=== PATIENT | female | born 1975 | race Caucasian/White ===

== ENCOUNTER 2020-01-18 09:40 | Outpatient (CLI) | payer BC, SELFPAY ==
--- NOTE | ~2020-01-18 | CT_ITS ---
EXAMINATION: CT sinus wo con DATE: 01/18/2020 10:14 INDICATION: Facial pain. TECHNIQUE: Computed tomography (CT) of the paranasal sinuses was performed without intravenous contra st. The dose-length product was 175.96 mGy-cm. Iterative reconstruction technique was employed. COMPARISON: None FINDINGS: There is no significant mucosal thickening or air-fluid level. No mucoperiosteal reaction. Ostiomeatal units are patent. Mastoids are pneumatized. IMPRESSION: 1. No significant paranasal sinus disease. Reviewed, dictated and finalized at location A.
== END 2020-01-18 09:41 | disposition home or self-care (01) ==
LOC: ANHIMG 09:46
DX: R51 Headache (principal)
CPT/HCPCS: 70486

== ENCOUNTER 2020-02-08 09:48 | Outpatient (CLI) | payer BC, SELFPAY ==
[2020-02-08 10:17] LABS: Basophils Absolute Auto 0.02 K/mm3 (0.00-0.10); Basophils Percent Auto 0.4 % (0.0-1.0); Eosinophils Absolute Auto 0.05 K/mm3 (0.02-0.50); Hematocrit 41.3 % (35.0-49.0); Hemoglobin 13.3 g/dL (12.0-15.0); Immature Granulocyte Absolute 0.02 K/mm3 (0.00-0.00); Immature Granulocyte Percent A 0.4 % (0.0-0.0); Lymphocytes Absolute Auto 1.63 K/mm3 (1.10-4.50); Lymphocytes Percent Auto 31.2 % (18.0-42.0); Mean Corpuscular HGB Conc 32.2 g/dL (32.0-36.0); Mean Corpuscular Hemoglobin 30.7 pg (27.0-31.0); Mean Corpuscular Volume 95.4 fL (78.0-102.0); Mean Platelet Volume 10.4 fl (9.2-11.8); Monocytes Absolute Auto 0.35 K/mm3 (0.10-0.90); Monocytes Percent Auto 6.7 % (2.0-11.0); Neutrophils Absolute Auto 3.2 K/mm3 (1.7-7.2); Neutrophils Percent Auto 60.3 % (50.0-70.0); Platelet Count Result 212 K/mm3 (150-420); Red Blood Count 4.33 M/mm3 (4.20-5.40); Red Cell Distribution Width 11.9 % (11.6-14.4); White Blood Count 5.2 K/mm3 (4.8-10.8)
[2020-02-08 11:19] LABS: Alanine Aminotransferase 35 U/L (14-59); Albumin Level 3.8 g/dL (3.4-5.0); Alkaline Phosphatase 69 U/L (46-116); Anion Gap 7 mmol/L (8-16); Aspartate Amino Transferase 22 U/L (15-37); Bilirubin,Total 0.4 mg/dL (0.00-1.00); Blood Urea Nitrogen 10 mg/dL (7-18); Calcium 9.2 mg/dL (8.5-10.1); Carbon Dioxide 28 mmol/L (21-32); Chloride 105 mmol/L (98-108); Cholesterol 146 mg/dL (0-200); Estimated Glomerular Filt Rate > 60; Glucose 80 mg/dL (70-99); HDL Direct 38 mg/dL (40-60); LDL Cholesterol Calculated 98 mg/dL (<130); Osmolality Calculated 288 mOsm/kg (285-295); Potassium 4.5 mmol/L (3.5-5.1); Sodium 140 mmol/L (136-145); Total Protein 6.8 g/dL (6.4-8.2); Triglycerides 50 mg/dL (0-150)
== END 2020-02-08 09:49 | disposition home or self-care (01) ==
LOC: CHSLAB 09:50
PROVIDERS: Visit Provider Internal Medicine Cardiovascular Disease
DX: E66.3 Overweight (principal); R06.00 Dyspnea, unspecified
CPT/HCPCS: 36415; 80053; 80061; 85025

== ENCOUNTER 2020-03-06 07:42 | Outpatient (CLI) | payer BC, SELFPAY ==
--- NOTE | ~2020-03-06 | MR_ITS ---
EXAMINATION: MR pituitary wo/w con DATE: 03/06/2020 09:20 INDICATION: Pituitary tumor. Pituitary disorder. Headache. TECHNIQUE: Magnetic resonance imaging (MRI) of the brain and brainstem was performed without and with 13 mL MultiHance intravenous contrast. Whole-brain sequences included sagittal T1-weighted FSE, axia l diffusion-weighted FS EPI, axial T2*-weighted GRE, axial T2-weighted FLAIR Propeller, and axial T2- weighted Propeller. Small mgewj-rc-cszo sequences included sagittal and coronal T1-weighted FSE cente red at the pituitary. Postcontrast sequences included small lewxn-xq-eaiq coronal T1-weighted FSE in a time course and sagittal T1-weighted FSE and whole-brain axial T1-weighted FSE. Apparent diffusion coefficient (ADC) maps were created. COMPARISON: Brain MRI 02/05/2019, 01/17/2017 FINDINGS: There are scattered areas of nonspecific increased T2-weighted signal intensity in the cere bral white matter. The pituitary is normal in size with height of 4 mm and concave superior margin. T he infundibulum is at the midline. There is no intracranial hemorrhage, acute infarction, or abnormal intracranial mass lesion. The ventricles are normal in size. The paranasal sinuses are clear. The or bits are normal. The mastoid air cells are normal. IMPRESSION: 1. Normal pituitary. 2. Stable mild nonspecific cerebral white matter disease. The differential diagnosis includes prematu re chronic small vessel ischemic disease (especially if the patient has cardiovascular risk factors), demyelinating disease such as multiple sclerosis, drug abuse, vasculitis, or reactive astrocytosis ( gliosis) secondary to nonspecific etiology. Reviewed, dictated and finalized at location A. TER ELECTRONIC IMPRESSION: 1. Normal pituitary. 2. Stable mild nonspecific cerebral white matter disease. The differential diag nosis includes premature chronic small vessel ischemic disease (especially if t he patient has cardiovascular risk factors), demyelinating disease such as mult iple sclerosis, drug abuse, vasculitis, or reactive astrocytosis (gliosis) seco ndary to nonspecific etiology.
[2020-03-06 08:31] LABS: Estimated Glomerular Filt Rate > 60
== END 2020-03-06 07:43 | disposition home or self-care (01) ==
DX: E23.7 Disorder of pituitary gland, unspecified (principal)
CPT/HCPCS: 70553; A9577

== ENCOUNTER 2020-03-13 08:46 | Outpatient (CLI) | payer BC, SELFPAY ==
--- NOTE | 2020-03-13 08:54 | EST_ITS ---
Patient Info Name: Ashley Becerril Age: 44 years : 1975 Gender: Female Ht: 63 in Wt: 145 lbs BSA: 1.72 m2 Exam Date: 03/13/2020 9:11 AM Exam Location: [facility] Stress Patient Status: Outpatient Admit Date: 03/13/2020 Staff Ordering Physician: Brian Saha DO Attending Provider: Brian Saha DO Exercise Technologist: Anneliese Snyder RDCS Exam Type: CA stress test treadmill Study Info Indications R06.00 - Dyspnea, unspecified A treadmill exercise stress test was performed. Summary 1. Normal sinus rhythm - normal ECG. 2. No abnormal ST/T wave changes with exercise. 3. Clinically and electrocardiographically negative exercise stress test at 99% of age predicted maximal heart rate. Protocol: [place] Stress ECG Details Stage: REST Duration (min): 1 min : 42 sec Speed (mph): 0.0 Grade (%): 0 HR (bpm): 66 SBP (mmHg): 104 DBP (mmHg): 66 METS: --- Stage: REST Duration (min): 1 min : 49 sec Speed (mph): 0.0 Grade (%): 0 HR (bpm): 68 SBP (mmHg): 104 DBP (mmHg): 66 METS: --- Stage: REST Duration (min): 10 min : 10 sec Speed (mph): 0.0 Grade (%): 0 HR (bpm): 79 SBP (mmHg): 104 DBP (mmHg): 66 METS: --- Stage: STAGE 1 Duration (min): 1 min : 0 sec Speed (mph): 1.7 Grade (%): 10 HR (bpm): 104 SBP (mmHg): 104 DBP (mmHg): 66 METS: --- Stage: STAGE 1 Duration (min): 2 min : 0 sec Speed (mph): 1.7 Grade (%): 10 HR (bpm): 104 SBP (mmHg): 104 DBP (mmHg): 66 METS: --- Stage: STAGE 1 Duration (min): 3 min : 0 sec Speed (mph): 1.7 Grade (%): 10 HR (bpm): 104 SBP (mmHg): 108 DBP (mmHg): 48 METS: --- Stage: STAGE 2 Duration (min): 1 min : 0 sec Speed (mph): 2.5 Grade (%): 12 HR (bpm): 113 SBP (mmHg): 108 DBP (mmHg): 48 METS: --- Stage: STAGE 2 Duration (min): 2 min : 0 sec Speed (mph): 2.5 Grade (%): 12 HR (bpm): 119 SBP (mmHg): 125 DBP (mmHg): 55 METS: --- Stage: STAGE 2 Duration (min): 3 min : 0 sec Speed (mph): 2.5 Grade (%): 12 HR (bpm): 120 SBP (mmHg): 125 DBP (mmHg): 55 METS: --- Stage: STAGE 3 Duration (min): 1 min : 0 sec Speed (mph): 3.4 Grade (%): 14 HR (bpm): 134 SBP (mmHg): 114 DBP (mmHg): 54 METS: --- Stage: STAGE 3 Duration (min): 2 min : 0 sec Speed (mph): 3.4 Grade (%): 14 HR (bpm): 142 SBP (mmHg): 114 DBP (mmHg): 54 METS: --- Stage: STAGE 3 Duration (min): 3 min : 0 sec Speed (mph): 3.4 Grade (%): 14 HR (bpm): 142 SBP (mmHg): 114 DBP (mmHg): 54 METS: --- Stage: STAGE 4 Duration (min): 1 min : 0 sec Speed (mph): 4.2 Grade (%): 16 HR (bpm): 166 SBP (mmHg): 114 DBP (mmHg): 54 METS: --- Stage: STAGE 4 Duration (min):
--- NOTE | 2020-03-21 14:16 | WPDPFTINT ---
PFT Interpretation PFT Interpretation: This PFT met all criteria for ATS standards and reproducibility FEV/FVC post bronchodilator 72% FEV1 117% FVC 125% TLC 121% RV 96% RV/TLC 27% DLCO 101% when adjusted for alveolar volume but not adjusted for hemoglobin Flow volume loops were normal Impression: No significant obstruction or restriction and unfortunately no bronchodilator challenge was ordered which limits the interpretation of this study. Borderline hyperinflation is present. If Asthma/Reactive Airway Disease is suspected I would recommend ordering a Methacholine Challenge Study. Clinical correlation is advised.
== END 2020-03-13 08:47 | disposition home or self-care (01) ==
PROVIDERS: Visit Provider Internal Medicine Cardiovascular Disease
DX: R06.00 Dyspnea, unspecified (principal)
CPT/HCPCS: 93017; 94375; 94726; 94729

== ENCOUNTER 2020-05-16 08:49 | Outpatient (CLI) | payer BC, SELFPAY ==
--- NOTE | ~2020-05-16 | DEXA_ITS ---
Bone Density Report Name: Ashley Becerril Age: 44 Sex: Female Ethnicity: White Date of : 1975 Indication: prior fracture; Referring Provider: JOHN MCCOY Study: Bone densitometry was performed. Exam Date: May 16, 2020 Accession number: [id number] Bone Density: Region BMD T-score Z-score Classification AP Spine (L1-L4) 0.956 -0.8 -0.3 Normal Femoral Neck (Left) 0.721 -1.2 -0.6 Osteopenia Total Hip (Left) 0.874 -0.6 -0.2 Normal Total Hip Bilateral Avg 0.838 -0.9 -0.5 Normal Femoral Neck (Right) 0.664 -1.7 -1.1 Osteopenia Total Hip (Right) 0.801 -1.2 -0.8 Osteopenia World Health Organization criteria for BMD impression classify patients as: Normal (T-score at or above -1.0), Osteopenia (T-score between -1.0 and -2.5), or Osteoporosis (T-score at or below -2.5). 10-year Fracture Risk: FRAX not reported because: Premenopausal woman Clinical Information Provided by Patient: Has had a low trauma fracture Has used the following medications: HRT (i.e. estrogen/hormone therapy), Vitamin D, Calcium Patient maximum height was 63 Drinks caffeinated beverages Onset of menses at age 12 Premenopausal Number of children 1 Impression: The patient's bone mass is within expected range for age, gender and ethnicity. The patient has risk factors, including: previous fracture. Discussion: BONE DENSITY IS WITHIN EXPECTED LIMITS FOR AGE, SEX AND RACE. Bone density is within expected limits for age, sex and race at all sites measured. The patient should follow a healthful lifestyle (good nutrition with adequate calcium and vitamin D, and appropriate weight-bearing exercise). Follow-Up: Consider repeating this study in 2 to 3 years to reassess this patient's status, or sooner if there is some new clinical indication. Reported by: UMESH on 05/18/2020 12:58:00 PM. Reviewed, dictated and finalized at location AJosué ROBBINS
== END 2020-05-16 08:50 | disposition home or self-care (01) ==
PROVIDERS: PCP Internal Medicine; Visit Provider Nurse Practitioner
DX: Z87.898 Personal history of other specified conditions (principal); M85.852 Other specified disorders of bone density and structure, left thigh; M85.851 Other specified disorders of bone density and structure, right thigh
CPT/HCPCS: 77080

== ENCOUNTER 2020-06-13 09:42 | Outpatient (CLI) | payer BC, SELFPAY ==
--- NOTE | ~2020-06-13 | MM_ITS ---
EXAMINATION: MM screening [facility] BI w jerod HISTORY: Screening mammogram TECHNIQUE: Craniocaudal and mediolateral oblique 3-D tomosynthesis images were obtained and synthetic 2-D images were generated. CAD analysis was submitted and interpreted. COMPARISON: 07/10/2017, 11/13/2014, 02/02/2010 BREAST PARENCHYMAL COMPOSITION: The breasts are heterogeneously dense, which may obscure small masses . FINDINGS: There is no evidence of suspicious mass, calcification, or architectural distortion to sugg est malignancy in either breast. There has been no suspicious interval change. IMPRESSION: 1. No mammographic evidence of malignancy. 2. Recommend routine screening mammography in one year. BI-RADS Category 1: Negative Reviewed, dictated and finalized at location A. ATANT DIVER QUALIFIED
== END 2020-06-13 09:43 | disposition home or self-care (01) ==
PROVIDERS: PCP Internal Medicine; Visit Provider Obstetrics & Gynecology
DX: Z12.31 Encounter for screening mammogram for malignant neoplasm of breast (principal)
CPT/HCPCS: 77063; 77067

== ENCOUNTER 2020-07-08 17:31 | Outpatient (CLI) | payer BC, SELFPAY ==
--- NOTE | ~2020-07-08 | XR_ITS ---
XR chest 2V DATE: 07/08/2020 17:53 INDICATION: Wheezing for 6 months. Chest pain with certain arm movement. TECHNIQUE: PA and lateral views COMPARISON: 09/08/2018 PA and lateral chest FINDINGS: Normal heart size. No hilar or mediastinal enlargement. No pulmonary infiltrate or consolid ation, pleural effusion or pulmonary vascular congestion or pneumothorax. Mild thoracolumbar dextroscoliosis. IMPRESSION: No active cardiopulmonary disease Reviewed, dictated and finalized at location A.
== END 2020-07-08 17:32 | disposition home or self-care (01) ==
PROVIDERS: PCP Internal Medicine; Visit Provider Internal Medicine Pulmonary Disease
DX: R06.2 Wheezing (principal)
CPT/HCPCS: 71046

== ENCOUNTER 2020-09-17 09:47 | Outpatient (CLI) | payer BC, SELFPAY ==
--- NOTE | 2020-09-17 11:30 | NEURO_ITS ---
Impression: # Complains of pain and discomfort in upper extremities. # No Carpal Tunnel Syndrome. # No ulnar neuropathy. # Normal needle/EMG exam. # Clinical correlation recommended. Nerve Conduction Studies Anti Sensory Summary Table Stim Site NR Peak (ms) P-T Amp (?V) Site1 Site2 Delta-P (ms) Dist (cm) Kike (m/s) Left Median Anti Sensory (2-3nd Digit) Wrist 2.6 73.4 Wrist 2-3nd Digit 2.6 14.0 54 Wrist 2.5 77.3 Wrist 2-3nd Digit 2.6 14.0 54 Right Median Anti Sensory (2-3nd Digit) Wrist 2.6 34.9 Wrist 2-3nd Digit 2.6 14.0 54 Wrist 2.2 64.2 Wrist 2-3nd Digit 2.6 14.0 54 Left Radial Anti Sensory (Base 1st Digit) Wrist 1.6 58.0 Wrist Base 1st Digit 1.6 0.0 Right Radial Anti Sensory (Base 1st Digit) Wrist 2.1 27.5 Wrist Base 1st Digit 2.1 0.0 Left Ulnar Anti Sensory (5th Digit) Wrist 2.0 84.7 Wrist 5th Digit 2.0 14.0 70 Right Ulnar Anti Sensory (5th Digit) Wrist 2.2 70.8 Wrist 5th Digit 2.2 14.0 64 Motor Summary Table Stim Site NR Onset (ms) O-P Amp (mV) Site1 Site2 Delta-0 (ms) Dist (cm) Kike (m/s) Left Median Motor (Abd Poll Brev) Wrist 2.5 9.8 Elbow Wrist 4.1 26.0 63 Elbow 6.6 9.9 Right Median Motor (Abd Poll Brev) Wrist 2.6 8.0 Elbow Wrist 4.0 26.0 65 Elbow 6.6 5.1 Left Ulnar Motor (Abd Dig Minimi) Wrist 2.2 5.3 A Elbow Wrist 4.6 28.0 61 A Elbow 6.8 4.8 Right Ulnar Motor (Abd Dig Minimi) Wrist 2.9 7.6 A Elbow Wrist 4.5 28.0 62 A Elbow 7.4 6.3 F Wave Studies NR F-Lat (ms) L-R F-Lat (ms) Left Median (Mrkrs) (Abd Poll Brev) 25.00 1.32 Right Median (Mrkrs) (Abd Poll Brev) 26.32 1.32 Left Ulnar (Mrkrs) (Abd Dig Min) 25.81 0.10 Right Ulnar (Mrkrs) (Abd Dig Min) 25.70 0.10 EMG Side Muscle Nerve Root Ins Act Fibs Amp Dur Recrt Comment Right 1stDorInt Ulnar C8-T1 Nml Nml Nml Nml Nml Right Ext Indicis Radial (Post Int) C7-8 Nml Nml Nml Nml Nml Right Ext Digitorum Radial (Post Int) C7-8 Nml Nml Nml Nml Nml Right BrachioRad Radial C5-6 Nml Nml Nml Nml Nml Right PronatorTeres Median C6-7 Nml Nml Nml Nml Nml Right Abd Poll Brev Median C8-T1 Nml Nml Nml Nml Nml Left 1stDorInt Ulnar C8-T1 Nml Nml Nml Nml Nml Left Ext Indicis Radial (Post Int) C7-8 Nml Nml Nml Nml Nml Left Ext Digitorum Radial (Post Int) C7-8 Nml Nml Nml Nml Nml Left BrachioRad Radial C5-6 Nml Nml Nml Nml Nml Left PronatorTeres Median C6-7 Nml Nml Nml Nml Nml Left Abd Poll Brev Median C8-T1 Nml Nml Nml Nml Nml MTDD
== END 2020-09-17 09:48 | disposition home or self-care (01) ==
PROVIDERS: PCP Internal Medicine; Visit Provider Orthopaedic Surgery
DX: G56.03 Carpal tunnel syndrome, bilateral upper limbs (principal)
CPT/HCPCS: 95886; 95911

== ENCOUNTER 2020-10-03 08:58 | Outpatient (CLI) | payer BC, SELFPAY ==
--- NOTE | ~2020-10-03 | US_ITS ---
EXAMINATION: US thyroid EXAM DATE: 10/03/2020 09:28 INDICATION: E04.1 - Nontoxic single thyroid nodule. TECHNIQUE: Multiple grayscale and Doppler images of the thyroid were obtained (by a technologist who performed the scan) and subsequently reviewed. Individual nodules and recommendations may be reporte d in accordance with TI-RADS system as designated by the 2017 ACR White Paper TI-RADS committee. The re is no prior study for comparison. FINDINGS: Right thyroid lobe measures 4.4 x 1.5 x 1.5 cm, the left measuring 4.2 x 1.3 x 1.6 cm with homogeneou s echogenicity. There is a right thyroid lobe midpole hypervascular nodule measuring 10 x 9 x 9 mm, c ategory TR 4. No other thyroid nodules identified. IMPRESSION: Single right thyroid lobe nodule; current recommendation is follow-up at 1, 2, 3 and 5 ye ars to document stability. Reviewed, dictated and finalized at location A. IMPRESSION: Single right thyroid lobe nodule; current recommendation is follow- up at 1, 2, 3 and 5 years to document stability.
== END 2020-10-03 08:59 | disposition home or self-care (01) ==
LOC: ANHIMG 09:02
PROVIDERS: PCP Internal Medicine; Visit Provider Nurse Practitioner
DX: E04.1 Nontoxic single thyroid nodule (principal)
CPT/HCPCS: 76536

== ENCOUNTER 2020-11-30 11:07 | Outpatient (CLI) | payer BC, SELFPAY ==
[2020-11-30 13:12] LABS: Basophils Absolute Auto 0.01 K/mm3 (0.00-0.10); Basophils Percent Auto 0.2 % (0.0-1.0); Eosinophils Absolute Auto 0.11 K/mm3 (0.02-0.50); Eosinophils Percent Auto 1.9 % (1.0-6.0); Hematocrit 40.9 % (35.0-49.0); Hemoglobin 13.9 g/dL (12.0-15.0); Immature Granulocyte Absolute 0.01 K/mm3 (0.00-0.00); Immature Granulocyte Percent A 0.2 % (0.0-0.0); Lymphocytes Absolute Auto 1.95 K/mm3 (1.10-4.50); Mean Corpuscular Hemoglobin 31.8 pg (27.0-31.0); Mean Corpuscular Volume 93.6 fL (78.0-102.0); Mean Platelet Volume 11.5 fl (9.2-11.8); Monocytes Absolute Auto 0.28 K/mm3 (0.10-0.90); Monocytes Percent Auto 4.9 % (2.0-11.0); Neutrophils Absolute Auto 3.4 K/mm3 (1.7-7.2); Neutrophils Percent Auto 58.8 % (50.0-70.0); Platelet Count Result 204 K/mm3 (150-420); Red Blood Count 4.37 M/mm3 (4.20-5.40); Red Cell Distribution Width 12.3 % (11.6-14.4); White Blood Count 5.7 K/mm3 (4.8-10.8)
[2020-12-02 20:22] LABS: Alpha-1-Antitrypsin, QN 120 mg/dL (83-199)
[2020-12-02 22:47] LABS: Immunoglobulin G, Serum 804 mg/dL (600-1640); Immunoglobulin G1 552 mg/dL (382-929); Immunoglobulin G2 155 mg/dL (241-700); Immunoglobulin G3 66 mg/dL (22-178); Immunoglobulin G4 2.2 mg/dL (4.0-86.0)
[2020-12-03 14:07] LABS: Immunoglobulin E 6 kU/L (<=114)
[2020-12-08 15:48] LABS: Quantiferon TB Plus, 1T NEGATIVE
[2020-12-08 15:49] LABS: NIL 0.05
== END 2020-11-30 11:08 | disposition home or self-care (01) ==
LOC: CHSLAB 11:11
PROVIDERS: PCP Internal Medicine; Visit Provider Nurse Practitioner
DX: R05 Cough (principal)
CPT/HCPCS: 36415; 82103; 82104; 82784; 82785; 82787; 85025; 86003; 86331; 86480; 86606; 86609

== ENCOUNTER 2021-01-26 12:21 | Outpatient (CLI) | payer BC, SELFPAY ==
--- NOTE | ~2021-01-26 | XR_ITS ---
XR chest 2V DATE: 01/26/2021 12:51 INDICATION: Wheezing. Mild exposure. TECHNIQUE: 2 views COMPARISON: 07/08/2020 2 view chest FINDINGS: No pulmonary infiltrate or consolidation, pleural effusion or pulmonary vascular congestion or pneumothorax. Normal heart size. No hilar or mediastinal enlargement. Mild thoracic scoliosis. IMPRESSION: No active cardiopulmonary disease Reviewed, dictated and finalized at location A.
--- NOTE | 2021-02-01 12:32 | WPDMETH ---
Methacholine Procedure Perform Procedure Performed Methacholine Challenge Methacholine Challenge Testing was performed with increasing doses of nebulized methacholine using a 2 minute tidal breathing protocol. Following the administration of nebulized methacholine with progressively increasing concentration and after the fifth dose with a concentration of 25 mg/ml, the measured FEV1 did not change significantly from the baseline value. Impression: Negative methacholine challenge testing.
== END 2021-01-26 12:22 | disposition home or self-care (01) ==
PROVIDERS: PCP Internal Medicine; Referring Provider Obstetrics & Gynecology; Visit Provider Nurse Practitioner
DX: R06.02 Shortness of breath (principal); Z77.120 Contact with and (suspected) exposure to mold (toxic)
CPT/HCPCS: 71046; 94070; J7674

== ENCOUNTER 2021-02-13 12:05 | Outpatient (CLI) | payer BC, SELFPAY ==
[2021-02-13 12:49] LABS: Basophils Absolute Auto 0.02 K/mm3 (0.00-0.10); Basophils Percent Auto 0.3 % (0.0-1.0); Eosinophils Absolute Auto 0.12 K/mm3 (0.02-0.50); Eosinophils Percent Auto 2.1 % (1.0-6.0); Hematocrit 41.7 % (35.0-49.0); Immature Granulocyte Absolute 0.01 K/mm3 (0.00-0.00); Immature Granulocyte Percent A 0.2 % (0.0-0.0); Lymphocytes Absolute Auto 2.09 K/mm3 (1.10-4.50); Mean Corpuscular HGB Conc 33.6 g/dL (32.0-36.0); Mean Corpuscular Hemoglobin 31.5 pg (27.0-31.0); Mean Corpuscular Volume 93.9 fL (78.0-102.0); Mean Platelet Volume 10.1 fl (9.2-11.8); Monocytes Absolute Auto 0.34 K/mm3 (0.10-0.90); Monocytes Percent Auto 5.9 % (2.0-11.0); Neutrophils Absolute Auto 3.2 K/mm3 (1.7-7.2); Neutrophils Percent Auto 55.5 % (50.0-70.0); Platelet Count Result 215 K/mm3 (150-420); Red Blood Count 4.44 M/mm3 (4.20-5.40); Red Cell Distribution Width 11.9 % (11.6-14.4); White Blood Count 5.8 K/mm3 (4.8-10.8)
[2021-02-17 13:30] LABS: Immunoglobulin A 128 mg/dL (47-310); Immunoglobulin G 890 mg/dL (600-1640); Immunoglobulin M 90 mg/dL (50-300)
[2021-02-17 18:26] LABS: Immunoglobulin E 5 kU/L (<=114)
[2021-02-20 18:57] LABS: S. pneumonia Serotype 1 (1) <0.3; S. pneumonia Serotype 12 (12F) 9.1; S. pneumonia Serotype 14 (14) <0.3; S. pneumonia Serotype 17 (17F) <0.3; S. pneumonia Serotype 18C (56) <0.3; S. pneumonia Serotype 19 (19F) 3.3; S. pneumonia Serotype 2 (2) <0.3; S. pneumonia Serotype 22 (22F) <0.3; S. pneumonia Serotype 23 (23F) 0.9; S. pneumonia Serotype 3 (3) 0.3; S. pneumonia Serotype 34 (10A) <0.3; S. pneumonia Serotype 4 (4) <0.3; S. pneumonia Serotype 43 (11A) <0.3; S. pneumonia Serotype 5 (5) <0.3; S. pneumonia Serotype 51 (7F) 0.5; S. pneumonia Serotype 54 (15B) <0.3; S. pneumonia Serotype 57 (19A) <0.3; S. pneumonia Serotype 68 (9V) <0.3; S. pneumonia Serotype 6B (26) <0.3; S. pneumonia Serotype 70 (33F) <0.3; S. pneumonia Serotype 8 (8) <0.3; S. pneumonia Serotype 9 (9N) <0.3
== END 2021-02-13 12:06 | disposition home or self-care (01) ==
LOC: CHSLAB 12:10
PROVIDERS: PCP Internal Medicine
DX: D80.1 Nonfamilial hypogammaglobulinemia (principal)
CPT/HCPCS: 36415; 82784; 82785; 85025; 86317; 86684; 86774

== ENCOUNTER 2021-04-04 16:24 | Emergency (ER) | payer BC, SELFPAY ==
--- NOTE | 2021-04-04 16:47 | ED.HA ---
HPI - Headache General Chief Complaint: Headache Stated Complaint: migraine, sinus pressure, short of breath Source: patient and RN notes reviewed Mode of arrival: ambulatory Limitations: no limitations History of Present Illness HPI Narrative: patient states she does not have a headache now but when she lays back supine position she tends to get headaches feels like her sinuses are draining and drainages going down the back of her throat. She has seen ENT and an academic support director. She has not seen a neurologist for headaches. She is concerned about later on tonight having another headache and waking up tomorrow may be with a headache. She takes a 1000 mg of Tylenol sometimes daily and 400 mg of ibuprofen. She asked about using migraine medicine such as Imitrex for her current headaches. MD elicited complaint: headache and migraine Onset (ago): week(s) (2) Onset description: gradually Location: frontal Pain scale (0-10): 0 Quality & Timing: aching and dull Exacerbating factors: light, noise and other ( Laying supine) Context: occurred at rest Associated symptoms: none Treatments prior to arrival: acetaminophen Related Data Home Medications Medication Instructions Recorded Confirmed acetaminophen 325 mg tablet 325 mg PO Q6H PRN 03/04/20 04/04/21 multivitamin 1 tablet PO DAILY 04/01/20 04/04/21 glucosamine HCl PO 06/24/20 03/02/21 turmeric 400 mg capsule mg PO 06/24/20 03/02/21 Allergies Allergy/AdvReac Type Severity Reaction Status Date / Time No Known Allergies Allergy Verified 04/04/21 16:47 Review of Systems Review of Systems: All systems reviewed & are unremarkable except as noted in HPI and below PMFSH Past Medical History Medical History Acquired cavovarus deformity of left foot Acquired cavovarus deformity of right foot Arthritis Arthritis of knee, degenerative Asthma Cardiac arrhythmia Carpal tunnel syndrome on both sides Change in vision Ear pain Headache, migraine Lateral epicondylitis/tennis elbow Light headedness Osteoarthritis Osteoporosis Pituitary abnormality Psoriasis Right wrist pain Seasonal allergies Shortness of breath Thyroid disease Wears glasses Surgical History Surgical History History of knee surgery History of tonsillectomy Family History Family History Father Diabetes mellitus Hypertension Mother Family history of hypothyroidism Other Family history of arthritis Family history of thyroid disease Social History Social History Second hand tobacco smoke exposure: Yes Alcohol intake: never Exam Const: General: healthy appearing, no acute distress and alert Nutritional Appearance: well nourished Orientation/consciousness: patient oriented x3 Other: Female nurse in room during examination. HENMT: Head: normal to inspection Ears: external ears normal Mouth: Yes moist mucous membranes abnormal Eyes: Conjunctivae: conjunctivae normal Pupils: Equal, round and reactive pupils present EOM: EOMs intact bilaterally Direct Ophthalmoscopy: No photophobia Neck: Neck: normal visual inspection and no lymphadenopathy Resp: Effort & Inspection: normal respiratory effort Auscultation: clear to auscultation bilaterally Cardio: Rate: regular rate Rhythm: regular rhythm GI: GI Palp: Yes Soft to palpation and No Tenderness to palpation present (GI) Auscultation: normal bowel sounds Back/Spine/Pelvis: Cervical Spine: cervical ROM normal Thoracic/Lumbar Spine: thoraco-lumbar ROM normal Skin: General skin exam: normal color Rashes: no rashes Neuro: General: patient oriented x3, moves all extremities, no focal motor deficits and CN's II-XI intact bilaterally Speech: normal speech Gait exam (Neuro): Normal gait present Extrem: General: normal to insp
[2021-04-04 17:00] VITALS: BP 108/79; PULSE 77; RESP 18; TEMP 36.3; O2SAT 96
--- NOTE | 2021-04-04 17:15 | PC.NURSE ---
RN in to supervise Dr. Boo intital assessment and extensive pt education.
== END 2021-04-04 17:19 | disposition home or self-care (01) ==
PROVIDERS: Emergency Provider Emergency Medicine; PCP Internal Medicine
DX: G44.229 Chronic tension-type headache, not intractable (principal)
CPT/HCPCS: 73140; 99283

== ENCOUNTER 2021-06-25 12:46 | Outpatient (CLI) | payer BC, SELFPAY ==
--- NOTE | 2021-06-25 12:57 | ECHO_ITS ---
Patient Info Name: Ashley Becerril Age: 45 years : 1975 Gender: Female Ht: 63 in Wt: 145 lbs BSA: 1.72 m2 HR: 64 bpm BP: 110 / 83 mmHg Technical Quality: Good Exam Date: 06/25/2021 1:06 PM Exam Location: [facility] Pulmonary Patient Status: Outpatient Admit Date: 06/25/2021 Staff Ordering Physician: Brian Saha DO Breaker Oiler: Doni Levi RDCS, RT Attending Provider: Brian Saha DO Referring Physician: Yifan SOTO; Exam Type: CA echo doppler color flow Study Info Indications I31.3 - Pericardial effusion (noninflammatory) Complete two-dimensional, color flow and Doppler transthoracic echocardiogram is performed. Strain analysis performed. Summary 1. Complete two-dimensional, color flow and Doppler transthoracic echocardiogram is performed. 2. Left ventricular chamber dimension is normal. 3. Left ventricular systolic function is normal, estimated at 60-65%. 4. The left ventricular diastolic function is normal. 5. E/e' 5 is not elevated. 6. Global longitudinal strain is mildly abnormal at -16.5%. 7. There is trace tricuspid valve regurgitation. 8. No pulmonary hypertension, estimated pulmonary arterial systolic pressure is 20 mmHg. Left Ventricle E/e' 5 is not elevated. Global longitudinal strain is mildly abnormal at -16.5%. Left ventricular chamber dimension is normal. Left ventricular systolic function is normal, estimated at 60-65%. The left ventricular diastolic function is normal. Right Ventricle Right ventricular systolic function is normal and with normal TAPSE 2.3 cm. Right ventricular chamber dimension is normal. Left Atria Left atrial chamber dimension is normal. Right Atria Right atrial chamber dimension is normal. Aortic Valve The aortic valve is trileaflet. There is no aortic valve stenosis. There is no aortic valve regurgitation. Pulmonic Valve There is no pulmonic regurgitation. Mitral Valve There is no mitral valve stenosis. There is no mitral valve regurgitation. Tricuspid Valve There is trace tricuspid valve regurgitation. No pulmonary hypertension, estimated pulmonary arterial systolic pressure is 20 mmHg. Pericardium/Pleural There is no pericardial effusion. Inferior Vena Cava Normal inferior vena cava with >50% collapse upon inspiration consistent with normal right atrial pressure, 5 mmHg. Aorta The aortic root size at the sinus of Valsalva is normal. Left Ventricular Outflow Tract Name Value Normal LVOT 2D LVOT Diameter 1.9 cm LVOT Doppler LVOT Peak Gradient 2 mmHg LVOT Mean Gradient 1 mmHg LVOT VTI 17 cm LVOT VTI/AV VTI Ratio 0.7 LVOT Stroke Volume 47 ml LVOT CO 2.6 l/min LVOT CI 1.5 l/min/m2 Mitral Valve Name Value Normal MV
== END 2021-06-25 12:47 | disposition home or self-care (01) ==
LOC: ANHCARD 12:51
PROVIDERS: PCP Internal Medicine; Visit Provider Internal Medicine Cardiovascular Disease
DX: I31.3 Pericardial effusion (noninflammatory) (principal)
CPT/HCPCS: 93306

== ENCOUNTER 2021-07-02 18:32 | Outpatient (CLI) | payer BC, SELFPAY ==
[2021-07-02 19:54] LABS: Beta HCG Quantitative < 1.00 mIU/mL (0-6)
== END 2021-07-02 18:33 | disposition home or self-care (01) ==
LOC: CHSLAB 18:45
PROVIDERS: PCP Obstetrics & Gynecology; Visit Provider Obstetrics & Gynecology
DX: Z32.00 Encounter for pregnancy test, result unknown (principal)
CPT/HCPCS: 36415; 84702

== ENCOUNTER 2021-07-05 17:02 | Outpatient (CLI) | payer BC, SELFPAY ==
--- NOTE | ~2021-07-05 | XR_ITS ---
EXAMINATION: XR knee RT 3V DATE: 07/05/2021 17:21 INDICATION: Right knee pain. TECHNIQUE: 3 views of right knee were obtained. COMPARISON: Right knee radiographs 03/02/2021 FINDINGS: Bone alignment is normal. No fracture. There are interference screws from anterior cruciate ligament reconstruction. There is mild tricompartmental osteoarthritis characterized by tiny osteoph ytes. No joint space narrowing. No knee joint effusion. IMPRESSION: 1. Mild right knee osteoarthritis. Reviewed, dictated and finalized at location A.
== END 2021-07-05 17:03 | disposition home or self-care (01) ==
LOC: CHSIMG 17:05
PROVIDERS: PCP Internal Medicine; Visit Provider Nurse Practitioner
DX: M25.561 Pain in right knee (principal)
CPT/HCPCS: 73562

== ENCOUNTER 2021-07-24 10:40 | Outpatient (CLI) | payer BC, SELFPAY ==
[2021-07-24 12:05] LABS: Alanine Aminotransferase 42 U/L (14-59); Albumin Level 3.8 g/dL (3.4-5.0); Alkaline Phosphatase 69 U/L (46-116); Anion Gap 6 mmol/L (8-16); Aspartate Amino Transferase 22 U/L (15-37); Bilirubin,Total 0.4 mg/dL (0.00-1.00); Blood Urea Nitrogen 12 mg/dL (7-18); Calcium 8.7 mg/dL (8.5-10.1); Carbon Dioxide 27 mmol/L (21-32); Chloride 104 mmol/L (98-108); Cholesterol 128 mg/dL (0-200); Estimated Glomerular Filt Rate > 60; Glucose 76 mg/dL (70-99); HDL Direct 41 mg/dL (40-60); LDL Cholesterol Calculated 77 mg/dL (<130); Osmolality Calculated 282 mOsm/kg (285-295); Potassium 4.2 mmol/L (3.5-5.1); Sodium 137 mmol/L (136-145); Total Protein 6.5 g/dL (6.4-8.2); Triglycerides 52 mg/dL (0-150)
[2021-07-27 14:05] LABS: Vitamin D 25 Hydroxy 29 ng/mL (30-100)
== END 2021-07-24 10:41 | disposition home or self-care (01) ==
PROVIDERS: PCP Internal Medicine; Visit Provider Nurse Practitioner
DX: E04.1 Nontoxic single thyroid nodule (principal); Z13.220 Encounter for screening for lipoid disorders; Z13.6 Encounter for screening for cardiovascular disorders; Z13.21 Encounter for screening for nutritional disorder
CPT/HCPCS: 36415; 80053; 80061; 82306

== ENCOUNTER 2021-08-02 09:33 | Outpatient (CLI) | payer BC, SELFPAY ==
[2021-08-02 11:18] LABS: Thyroid Stimulating Hormone 2.11 uIU/mL (0.36-3.74)
== END 2021-08-02 09:34 | disposition home or self-care (01) ==
LOC: CHSLAB 09:37
PROVIDERS: PCP Internal Medicine; Visit Provider Nurse Practitioner
DX: E04.1 Nontoxic single thyroid nodule (principal)
CPT/HCPCS: 36415; 84443; 84480

== ENCOUNTER 2021-08-07 10:30 | Outpatient (CLI) | payer BC, SELFPAY ==
[2021-08-07 10:55] LABS: Basophils Absolute Auto 0.02 K/mm3 (0.00-0.10); Basophils Percent Auto 0.3 % (0.0-1.0); Eosinophils Absolute Auto 0.07 K/mm3 (0.02-0.50); Eosinophils Percent Auto 1.1 % (1.0-6.0); Hematocrit 42.4 % (35.0-49.0); Hemoglobin 14.2 g/dL (12.0-15.0); Immature Granulocyte Absolute 0.01 K/mm3 (0.00-0.00); Immature Granulocyte Percent A 0.2 % (0.0-0.0); Lymphocytes Absolute Auto 1.98 K/mm3 (1.10-4.50); Lymphocytes Percent Auto 31.3 % (18.0-42.0); Mean Corpuscular HGB Conc 33.5 g/dL (32.0-36.0); Mean Corpuscular Hemoglobin 31.5 pg (27.0-31.0); Mean Platelet Volume 9.8 fl (9.2-11.8); Monocytes Absolute Auto 0.41 K/mm3 (0.10-0.90); Monocytes Percent Auto 6.5 % (2.0-11.0); Neutrophils Absolute Auto 3.8 K/mm3 (1.7-7.2); Neutrophils Percent Auto 60.6 % (50.0-70.0); Platelet Count Result 233 K/mm3 (150-420); Red Blood Count 4.51 M/mm3 (4.20-5.40); White Blood Count 6.3 K/mm3 (4.8-10.8)
[2021-08-07 11:22] LABS: Iron 123 ug/dL (50-170); Percent Iron Saturation 41 % (12-57)
== END 2021-08-07 10:31 | disposition home or self-care (01) ==
LOC: CHSLAB 10:33
PROVIDERS: PCP Internal Medicine; Visit Provider Internal Medicine
DX: R06.00 Dyspnea, unspecified (principal); Z13.0 Encounter for screening for diseases of the blood and blood-forming organs and certain disorders involving the immune mechanism
CPT/HCPCS: 36415; 83540; 83550; 85025

== ENCOUNTER 2022-07-21 07:07 | Outpatient (CLI) | payer BC, SELFPAY ==
[2022-07-21 08:06] LABS: Alanine Aminotransferase 30 U/L (14-59); Albumin Level 3.6 g/dL (3.4-5.0); Alkaline Phosphatase 83 U/L (46-116); Anion Gap 8 mmol/L (8-16); Aspartate Amino Transferase 18 U/L (15-37); Bilirubin,Total 0.4 mg/dL (0.00-1.00); Blood Urea Nitrogen 15 mg/dL (7-18); Carbon Dioxide 30 mmol/L (21-32); Chloride 107 mmol/L (98-108); Cholesterol 141 mg/dL (0-200); Estimated Glomerular Filt Rate > 60; Free T4 Free Thyroxine 0.86 ng/dL (0.76-1.46); Glucose 94 mg/dL (70-99); HDL Direct 35 mg/dL (40-60); LDL Cholesterol Calculated 94 mg/dL (<130); Osmolality Calculated 300 mOsm/kg (285-295); Potassium 4.3 mmol/L (3.5-5.1); Sodium 145 mmol/L (136-145); Thyroid Stimulating Hormone 3.81 uIU/mL (0.36-3.74); Total Protein 6.7 g/dL (6.4-8.2); Triglycerides 61 mg/dL (0-150)
== END 2022-07-21 07:08 | disposition home or self-care (01) ==
LOC: CHSLAB 07:09
PROVIDERS: Visit Provider Nurse Practitioner Family
DX: Z00.00 Encounter for general adult medical examination without abnormal findings (principal); E66.3 Overweight
CPT/HCPCS: 36415; 80053; 80061; 84439; 84443

== ENCOUNTER → 2022-09-03 10:08 | Outpatient (CLI) | payer BC, SELFPAY ==
--- NOTE | ~2022-09-03 | MM_ITS ---
EXAMINATION: MM screening [facility] BI w jerod HISTORY: Screening mammogram TECHNIQUE: Craniocaudal and mediolateral oblique 3-D tomosynthesis images were obtained and synthetic 2-D images were generated. CAD analysis was submitted and interpreted. COMPARISON: 06/13/2020, 07/10/2017, 11/13/2014 BREAST PARENCHYMAL COMPOSITION: The breasts are heterogeneously dense, which may obscure small masses . FINDINGS: No suspicious mass, calcification, or architectural distortion are identified in either edinson ast to suggest malignancy. There has been no suspicious interval change. IMPRESSION: 1. No mammographic evidence of malignancy. 2. Recommend routine screening mammography in one year. BI-RADS Category 1: Negative Reviewed, dictated and finalized at location A.
== END ==
PROVIDERS: PCP Family Medicine; Visit Provider Obstetrics & Gynecology
DX: Z12.31 Encounter for screening mammogram for malignant neoplasm of breast (principal)
CPT/HCPCS: 77063; 77067

== ENCOUNTER 2022-09-08 08:41 | Outpatient (CLI) | payer BC, SELFPAY ==
[2022-09-08 08:59] LABS: Basophils Absolute Auto 0.01 K/mm3 (0.00-0.10); Basophils Percent Auto 0.2 % (0.0-1.0); Eosinophils Percent Auto 1.6 % (1.0-6.0); Hematocrit 40.2 % (35.0-49.0); Hemoglobin 13.6 g/dL (12.0-15.0); Immature Granulocyte Absolute 0.02 K/mm3 (0.00-0.00); Immature Granulocyte Percent A 0.3 % (0.0-0.0); Lymphocytes Absolute Auto 1.45 K/mm3 (1.10-4.50); Lymphocytes Percent Auto 23.7 % (18.0-42.0); Mean Corpuscular HGB Conc 33.8 g/dL (32.0-36.0); Mean Corpuscular Hemoglobin 31.3 pg (27.0-31.0); Mean Corpuscular Volume 92.6 fL (78.0-102.0); Mean Platelet Volume 9.4 fl (9.2-11.8); Monocytes Absolute Auto 0.37 K/mm3 (0.10-0.90); Monocytes Percent Auto 6.1 % (2.0-11.0); Neutrophils Absolute Auto 4.2 K/mm3 (1.7-7.2); Neutrophils Percent Auto 68.1 % (50.0-70.0); Platelet Count Result 208 K/mm3 (150-420); Red Blood Count 4.34 M/mm3 (4.20-5.40); Red Cell Distribution Width 12.2 % (11.6-14.4); White Blood Count 6.1 K/mm3 (4.8-10.8)
[2022-09-08 09:43] LABS: Free T4 Free Thyroxine 0.79 ng/dL (0.76-1.46); Thyroid Stimulating Hormone 1.71 uIU/mL (0.36-3.74)
[2022-09-13 18:17] LABS: Testosterone Free 2.5 pg/mL (0.1-6.4); Testosterone Total 18 ng/dL (2-45)
[2022-09-14 21:14] LABS: Vitamin D 25 Hydroxy 35 ng/mL (30-100)
[2022-09-15 04:46] LABS: FSH 7.8 mIU/mL (***); Progesterone 2.8 ng/mL (***)
[2022-09-15 04:46] LABS: Cortisol Random 8.6 mcg/dL (***)
[2022-09-16 23:13] LABS: Estradiol, Ultrasensitive 303 pg/mL
[2022-09-19 02:17] LABS: Thyroid Peroxidase Antibodies 2 IU/mL (<9)
== END 2022-09-08 08:42 | disposition home or self-care (01) ==
LOC: CHSLAB 08:42
PROVIDERS: PCP Nurse Practitioner Family; Visit Provider Obstetrics & Gynecology
DX: Z00.00 Encounter for general adult medical examination without abnormal findings (principal); E55.9 Vitamin D deficiency, unspecified; E04.1 Nontoxic single thyroid nodule; N95.1 Menopausal and female climacteric states
CPT/HCPCS: 36415; 82306; 82533; 82670; 83001; 84144; 84402; 84403; 84439; 84443; 85025; 86376

== ENCOUNTER → 2022-10-07 13:57 | Outpatient (CLI) | payer BC, SELFPAY ==
--- NOTE | ~2022-10-07 | US_ITS ---
US breast BI complete DATE: 10/07/2022 14:27 INDICATION: Right breast lump for 2 years. TECHNIQUE: Real-time imaging of both breasts including all 4 quadrants and subareolar areas COMPARISON: 09/03/2022 bilateral screening mammogram FINDINGS: No suspicious mass or shadowing, cyst or other significant sonographic abnormality of eithe r breast is detected. IMPRESSION: BI-RADS Category 1: Negative Recommendation: Routine annual mammographic screening Reviewed, dictated and finalized at Location A. Reviewed, dictated and finalized at location A.
== END ==
PROVIDERS: PCP Family Medicine; Visit Provider Obstetrics & Gynecology
DX: N63.10 Unspecified lump in the right breast, unspecified quadrant (principal)
CPT/HCPCS: 76641

== ENCOUNTER 2022-11-25 03:16 | Day surgery (SDC) | payer BC, SELFPAY ==
[2022-11-18 09:53] VITALS: BMI 27.1
--- NOTE | 2022-11-24 18:14 | PM.HPGS ---
History of Present Illness History of Present Illness Consent: Risks, benefits, and alternatives have been discussed and questions answered. Patient agrees to proceed with procedure. Chief complaint: neoplasm screening Narrative: Ashley Becerril is a 47 year old female Referred for colon cancer screening. Review of Systems Review of Systems: All systems reviewed & are unremarkable except as noted in HPI and below PMFSH Past Medical History Medical History Acquired cavovarus deformity of left foot Acquired cavovarus deformity of right foot Arthritis Arthritis of knee, degenerative Asthma Cardiac arrhythmia Carpal tunnel syndrome on both sides Change in vision COVID-19 Ear pain Headache, migraine Lateral epicondylitis/tennis elbow Light headedness Osteoarthritis Osteoporosis Pituitary abnormality Psoriasis Right wrist pain Seasonal allergies Shortness of breath Thyroid disease Wears glasses Surgical History Surgical History History of repair of anterior cruciate ligament of right knee History of tonsillectomy Family History Family History Father Diabetes mellitus Hypertension Mother Family history of hypothyroidism Other Family history of arthritis Family history of thyroid disease Social History Social History Smoking status: Never smoker Second hand tobacco smoke exposure: Yes Alcohol intake: never Substance use: never Substance use type: does not use Lack of Transportation: No Lack of Food: Never True Current Housing: I Have Housing Concerned About Future Housing: No Difficulty Paying Gas/Electric Bills: No Difficulty Paying for Meds: No Currently Unemployed: No Education: Bachelor's Degree Difficulty w/ Childcare or Family Care: No Living arrangements: with family Spiritual care concerns: No Meds Home Medications and Allergies Home Medications Medication Instructions Recorded Confirmed Type acetaminophen 325 mg tablet 325 mg PO Q6H PRN Pain 03/04/20 11/25/22 History (Tylenol) multivitamin (Daily Multi-Vitamin 1 tablet PO DAILY 04/01/20 11/25/22 History tablet) albuterol sulfate 90 mcg/actuation 2 inh inhalation Q4H PRN shortness 05/06/20 11/25/22 Rx aerosol inhaler of breath or wheezing #18 grams ciprofloxacin 0.3 %-dexamethasone 4 drp EACH EAR Q12H #7.5 mL 07/02/21 11/25/22 Rx 0.1 % ear drops,suspension (Ciprodex) cholecalciferol (vitamin D3) 50 50 mcg PO DAILY #90 tabs 07/28/21 11/25/22 Rx mcg (2,000 unit) tablet fluticasone propionate 50 2 spray intranasal DAILY #16 grams 06/07/22 11/25/22 Rx mcg/actuation nasal spray,suspension (Flonase Allergy Relief) adrenal cortex (porcine) 80 mg 80 mg PO DAILY 11/18/22 11/25/22 History tablet cetirizine 10 mg tablet (Zyrtec) 10 mg PO DAILY 11/18/22 11/25/22 History rutin 500 mg tablet 500 mg PO DAILY 11/18/22 11/25/22 History Allergies Allergy/AdvReac Type Severity Reaction Status Date / Time No Known Allergies Allergy Verified 11/25/22 09:18 Exam Const: General: alert Orientation/consciousness: patient oriented x3 Resp: Auscultation: clear to auscultation bilaterally Cardio: Rhythm: regular rhythm GI: GI Palp: Yes Soft to palpation and No Tenderness to palpation present (GI) Neuro: General: patient oriented x3 Assessment and Plan Assessment and plan (1) Colon cancer screening: Code(s): Z12.11 - Encounter for screening for malignant neoplasm of colon Status: Acute Assessment and Plan: Colonoscopy with possible biopsy or polypectomy or cautery or injection of substances.
[2022-11-25 09:14] VITALS: BP 100/68; PULSE 65; RESP 20; TEMP 36.3; O2SAT 100
[2022-11-25] MEDS: LACTATED RINGERS 1,000 ML 150 ML IV CONT (09:26)
--- NOTE | 2022-11-25 09:49 | WPDANESEPPF ---
Anes - Initial Pre Proc Eval Procedure: Operation Date: 11/25/22 10:00 Proposed Procedures p Colonoscopy - Vinod Soliz MD Date/Time: 11/25/22 09:49 Surgeon: Vinod Soliz MD Pre Op Diagnosis: neoplasm screening Patient Data Age: 47 Gender: F Height: 1.6 m Weight: 71.6 kg Last Vital Signs Temp 97.3 F L 11/25/22 09:14 Pulse 65 11/25/22 09:14 Resp 20 11/25/22 09:14 BP 100/68 11/25/22 09:14 Pulse Ox 100 11/25/22 09:14 O2 Del Method Room Air 11/25/22 09:14 Allergies Allergy/AdvReac Type Severity Reaction Status Date / Time No Known Allergies Allergy Verified 11/25/22 09:18 Home Medications Medication Instructions Recorded Confirmed Type acetaminophen 325 mg tablet 325 mg PO Q6H PRN Pain 03/04/20 11/25/22 History (Tylenol) multivitamin (Daily Multi-Vitamin 1 tablet PO DAILY 04/01/20 11/25/22 History tablet) albuterol sulfate 90 mcg/actuation 2 inh inhalation Q4H PRN shortness 05/06/20 11/25/22 Rx aerosol inhaler of breath or wheezing #18 grams ciprofloxacin 0.3 %-dexamethasone 4 drp EACH EAR Q12H #7.5 mL 07/02/21 11/25/22 Rx 0.1 % ear drops,suspension (Ciprodex) cholecalciferol (vitamin D3) 50 50 mcg PO DAILY #90 tabs 07/28/21 11/25/22 Rx mcg (2,000 unit) tablet fluticasone propionate 50 2 spray intranasal DAILY #16 grams 06/07/22 11/25/22 Rx mcg/actuation nasal spray,suspension (Flonase Allergy Relief) adrenal cortex (porcine) 80 mg 80 mg PO DAILY 11/18/22 11/25/22 History tablet cetirizine 10 mg tablet (Zyrtec) 10 mg PO DAILY 11/18/22 11/25/22 History rutin 500 mg tablet 500 mg PO DAILY 11/18/22 11/25/22 History Patient hx anesthesia problems: none Family hx anesthesia problems: none Results Review: All pre-operative results and documents have been reviewed as part of the pre-operative evaluation. [facility] Past Medical History Medical History Acquired cavovarus deformity of left foot Acquired cavovarus deformity of right foot Arthritis Arthritis of knee, degenerative Asthma Cardiac arrhythmia Carpal tunnel syndrome on both sides Change in vision COVID-19 Ear pain Headache, migraine Lateral epicondylitis/tennis elbow Light headedness Osteoarthritis Osteoporosis Pituitary abnormality Psoriasis Right wrist pain Seasonal allergies Shortness of breath Thyroid disease Wears glasses Surgical History Surgical History History of repair of anterior cruciate ligament of right knee History of tonsillectomy Family History Family History Father Diabetes mellitus Hypertension Mother Family history of hypothyroidism Other Family history of arthritis Family history of thyroid disease Social History Social History Smoking status: Never smoker Second hand tobacco smoke exposure: Yes Alcohol intake: never Substance use: never Substance use type: does not use Lack of Transportation: No Lack of Food: Never True Current Housing: I Have Housing Concerned About Future Housing: No Difficulty Paying Gas/Electric Bills: No Difficulty Paying for Meds: No Currently Unemployed: No Education: Bachelor's Degree Difficulty w/ Childcare or Family Care: No Living arrangements: with family Spiritual care concerns: No Anes - Eval Final PreProcedure Day of Procedure 11/25/22 09:49 Patient weight: normal Heart: regular rate and rhythm Lungs: clear to auscultation Airway: Mallampati scale class II Neurological: alert and oriented Last oral intake: >/= 8 hours ASA classification: II Emergent: no Anesthetic plan: proceed Anesthesia type and monitoring: general GIVS and standard monitoring Results Review: All pre-operative results and documents have been reviewed as part of the pre-o
[2022-11-25 10:05] VITALS: BP 95/60; PULSE 70; RESP 22; O2SAT 98
[2022-11-25 10:15] VITALS: BP 93/60; PULSE 68; RESP 18; O2SAT 100
[2022-11-25 10:25] VITALS: BP 105/65; PULSE 70; RESP 18; O2SAT 100
== END 2022-11-25 10:39 | disposition home or self-care (01) ==
PROVIDERS: PCP Family Medicine; Visit Provider Internal Medicine Gastroenterology
PROC: 0DJD8ZZ Inspection of Lower Intestinal Tract, Via Natural or Artificial Opening Endoscopic (ICD-10-PCS; CPT 45378; principal; 2022-11-25 10:00)
DX: Z12.11 Encounter for screening for malignant neoplasm of colon (principal); K62.1 Rectal polyp; Z79.51 Long term (current) use of inhaled steroids; J45.909 Unspecified asthma, uncomplicated; E23.7 Disorder of pituitary gland, unspecified
CPT/HCPCS: 45380; 88305; J2704; J7120

== ENCOUNTER 2023-04-21 18:03 | Outpatient (CLI) | payer BC, SELFPAY ==
[2023-04-21 19:18] LABS: CRP < 0.5 mg/dL (0.0-0.9); Magnesium 1.8 mg/dL (1.8-2.4)
[2023-04-21 21:09] LABS: Erythrocyte Sedimentation Rate 16 mm/hr (0-15)
[2023-04-21 21:18] LABS: Rheumatoid Factor Screen Negative (Negative)
[2023-04-26 22:19] LABS: Anti Cyclic Citrullinated Pept <16 Units (<20)
[2023-04-27 04:51] LABS: Anti Nuclear Antibody Titer 1:40 (Negative)
== END 2023-04-21 18:04 | disposition home or self-care (01) ==
PROVIDERS: PCP Nurse Practitioner; Visit Provider Nurse Practitioner
DX: M25.50 Pain in unspecified joint (principal); M79.10 Myalgia, unspecified site
CPT/HCPCS: 36415; 83735; 85652; 86038; 86039; 86140; 86200; 86430

== ENCOUNTER 2024-02-17 08:09 | Outpatient (CLI) | payer BC, SELFPAY ==
--- NOTE | ~2024-02-17 | MM_ITS ---
EXAMINATION: MM screening anthony BI w jerod HISTORY: Screening mammogram TECHNIQUE: Craniocaudal and mediolateral oblique 3-D tomosynthesis images were obtained and synthetic 2-D images were generated. CAD analysis was submitted and interpreted. COMPARISON: 09/03/2022, 06/13/2020 BREAST PARENCHYMAL COMPOSITION:Dense: The breasts are heterogeneously dense, which may obscure small masses. FINDINGS: No suspicious mass, calcification, or architectural distortion are identified in either edinson ast to suggest malignancy. There has been no suspicious interval change. IMPRESSION: No mammographic evidence of malignancy. Recommend routine screening mammography in one year. BI-RADS Category 1: Negative Reviewed, dictated and finalized at location .
== END 2024-02-17 08:10 | disposition home or self-care (01) ==
PROVIDERS: PCP Obstetrics & Gynecology; Visit Provider Obstetrics & Gynecology
DX: Z12.31 Encounter for screening mammogram for malignant neoplasm of breast (principal)
CPT/HCPCS: 77063; 77067

== ENCOUNTER 2024-03-26 10:57 | Outpatient (CLI) | payer BC, SELFPAY ==
--- NOTE | ~2024-03-26 | MR_ITS ---
MRI of the right knee Clinical history: Pain Technique: Coronal proton density and proton density-weighted images, sagittal proton-density and T2 fat-sat images, and axial proton-density fat-saturated images were acquired. Findings: There is evidence of prior ACL reconstruction. The graft is not clearly delineated, and rec urrent tear is suspected. Posterior cruciate ligament intact. Medial collateral ligament and the late ral collateral ligament complex are intact. Popliteus tendon is intact. There is complex chronic tearing of the posterior horn and body medial meniscus, which are markedly d iminutive/macerated, versus possibly postmeniscectomy change. There is horizontal/oblique tear of the posterior horn of the lateral meniscus. There is extensive grade IV chondromalacia of the lateral patellar facet. There are extensive grade 4 chondral malacia the medial compartment with reactive subchondral marrow edema in the medial tibial plateau region. There is extensive moderate to high-grade chondromalacia of the lateral compartment. Moderate tricompartmental osteophyte formation present. Extensor mechanism is intact. No significant joint effusion or Leija's cyst. Probable mild pes anseri ne bursitis.. Impression: Prior ACL reconstruction. ACL graft is not clearly delineated, and recurrent tear is suspected. Corre late for ACL laxity. Extensive complex tearing of the posterior horn and body of the medial meniscus, which are markedly d iminutive and macerated. Correlate for prior partial meniscectomy. Horizontal/oblique tear of the posterior horn lateral meniscus. Moderate to advanced tricompartmental osteoarthritis, worst at the patellofemoral and medial compartm ents, as detailed above. Reviewed, dictated and finalized at location . [employer] Impression: Prior ACL reconstruction. ACL graft is not clearly delineated, and recurrent te ar is suspected. Correlate for ACL laxity. Extensive complex tearing of the posterior horn and body of the medial meniscus , which are markedly diminutive and macerated. Correlate for prior partial meni scectomy. Horizontal/oblique tear of the posterior horn lateral meniscus. Moderate to advanced tricompartmental osteoarthritis, worst at the patellofemor al and medial compartments, as detailed above.
== END 2024-03-26 10:58 | disposition home or self-care (01) ==
LOC: MICIMG 10:59
PROVIDERS: PCP Nurse Practitioner
DX: M17.11 Unilateral primary osteoarthritis, right knee (principal); S83.231A Complex tear of medial meniscus, current injury, right knee, initial encounter; X58.XXXA Exposure to other specified factors, initial encounter
CPT/HCPCS: 73721

== ENCOUNTER 2024-04-02 12:50 | Outpatient (CLI) | payer BC, SELFPAY ==
--- NOTE | ~2024-04-02 | DEXA_ITS ---
Bone Density Report Name: ROSIBEL CRAIN Age: 48 Sex: Female Ethnicity: White Date of : 1975 Indication: osteopenia; Referring Provider: KHALIDA PINTO Study: Bone densitometry was performed. Exam Date: April 02, 2024 Accession number: [id number] Bone Density: Region BMD T-score Z-score Classification AP Spine(L1-L4) 1.008 -0.4 0.4 Normal Femoral Neck (Left) 0.735 -1.0 -0.2 Normal Total Hip (Left) 0.960 0.2 0.6 Normal Femoral Neck (Right) 0.740 -1.0 -0.2 Normal Total Hip (Right) 0.958 0.1 0.6 Normal Total Hip Mean 0.959 0.2 0.6 Normal World Health Organization criteria for BMD impression classify patients as: Normal (T-score at or above -1.0), Osteopenia (T-score between -1.0 and -2.5), or Osteoporosis (T-score at or below -2.5). 10-year Fracture Risk: FRAX not reported because: Premenopausal woman All T-scores for Spine Total, Hip Total, Femoral Neck at or above -1.0 Previous Exams: Region Exam Age BMD T-score BMD Change BMD Change Date g/cm2 vs Baseline vs Previous AP Spine (L1-L4) 04/02/2024 48 1.008 -0.4 0.052 (5.5%)# 0.052 (5.5%)# 05/16/2020 44 0.956 -0.8 Total Hip(Left) 04/02/2024 48 0.960 0.2 0.086 (9.9%)# 0.086 (9.9%)# 05/16/2020 44 0.874 -0.6 Total Hip(Right) 04/02/2024 48 0.958 0.1 0.157 (19.6%)# 0.157 (19.6%)# 05/16/2020 44 0.801 -1.2 *Denotes significance at 95% confidence level, LSC for AP Spine = 0.022 g/cm2, LSC for Total Hip = 0.027 g/cm2 # Denotes dissimilar scan types or analysis methods Clinical Information Provided by Patient: Has used the following medications: Vitamin D, Calcium Patient maximum height was 63 Drinks caffeinated beverages Onset of menses at age 12 Premenopausal Number of children 1 Impression: The patient's bone mass is within expected range for age, gender and ethnicity. No significant bone loss was observed. Discussion: BONE DENSITY IS WITHIN EXPECTED LIMITS FOR AGE, SEX AND RACE. Bone density is within expected limits for age, sex and race at all sites measured. The patient should follow a healthful lifestyle (good nutrition with adequate calcium and vitamin D, and appropriate weight-bearing exercise). Follow-Up: Consider repeating this study in 5 years or sooner if there is some new clinical indication. Reported by: UMESH on 04/02/2024 1:43:00 PM. Reviewed, dictated and finalized at location AJosué ROBBINS
== END 2024-04-02 12:51 | disposition home or self-care (01) ==
PROVIDERS: PCP Obstetrics & Gynecology; Visit Provider Obstetrics & Gynecology
DX: Z13.820 Encounter for screening for osteoporosis (principal)
CPT/HCPCS: 77080

== ENCOUNTER 2024-07-09 17:09 | Emergency (ER) | payer BC, SELFPAY ==
--- NOTE | ~2024-07-09 | XR_ITS ---
3 VIEWS LUMBAR SPINE Ordering provider: Sandra Ascencio APRN History: . low back pain . Comparison: None. FINDINGS: VERTEBRAL BODIES:Spondylolisthesis at the level of L5-S1 with spondylolysis. No visible fracture or subluxation. DISK SPACES: Narrowing of the disc L5-S1. Facet joint disease at the same level. SOFT TISSUES: Normal. IMPRESSION: No acute osseous abnormality lumbar spine. Spondylolisthesis at the level of L5-S1 with degenerative disc disease at the same level. Reviewed, dictated and finalized at location A. IMPRESSION: No acute osseous abnormality lumbar spine. Spondylolisthesis at the level of L5-S1 with degenerative disc disease at the s divine level.
--- NOTE | 2024-07-09 17:11 | ED.BACK ---
HPI - Back Pain/Injury General Chief Complaint: Back Pain/Injury Stated Complaint: BACK PAIN Source: patient and RN notes reviewed Mode of arrival: ambulatory Limitations: no limitations History of Present Illness HPI Narrative: Patient is a 49-year-old female who presents to the [facility] with complaints of acute exacerbation chronic low back pain. Patient states that she has been dealing with low back pain that radiates into her left buttock for months. She has had an exacerbation of the pain over the last few days. She was attempting to get in her chiropractor but they stated she needed to be evaluated and cleared prior to adjustment as patient has history of slipped disc. States that her pain worsens with movement, ambulation, and certain positions. She denies known injury to her back. Denies numbness. Denies dysfunction of bladder or bowel. Patient states that she has tried multiple natural oils, CBD oil, and over the counter medications and supplements without relief prior to arrival. Related Data Home Medications ?Medication ?Instructions ?Recorded ?Confirmed ?Last Taken ?Type acetaminophen 325 mg tablet 325 mg PO Q6H PRN Pain 03/04/20 09/22/23 11/24/22 History (Tylenol) multivitamin (Daily Multi-Vitamin 1 tablet PO DAILY 04/01/20 09/22/23 11/24/22 History tablet) adrenal cortex (porcine) 80 mg 80 mg PO DAILY 11/18/22 09/22/23 11/24/22 History tablet cetirizine 10 mg tablet (Zyrtec) 10 mg PO DAILY 11/18/22 09/22/23 11/24/22 History rutin 500 mg tablet 500 mg PO DAILY 11/18/22 09/22/23 11/24/22 History Allergies Allergy/AdvReac Type Severity Reaction Status Date / Time No Known Allergies Allergy Verified 09/22/23 09:12 Review of Systems Review of Systems: CONSTITUTIONAL: Denies fever, chills, or sweats. EYES: Denies visual changes, redness, or discharge. ENT: Denies otalgia and sore throat CARDIOVASCULAR: Denies chest pain, palpitations, or edema. RESPIRATORY: Denies cough or dyspnea. GASTROINTESTINAL: Denies abdominal pain, nausea, vomiting, or diarrhea. GENITOURINARY: Denies dysuria or hematuria. SKIN: Denies rash or itching. MUSCULOSKELETAL: Reports back pain but denies myalgia. NEUROLOGIC: Denies headache, numbness, or weakness. Pertinent positives per HPI. [facility] Past Medical History Medical History COVID-19 Right wrist pain Osteoporosis Osteoarthritis Psoriasis Ear pain Wears glasses Light headedness Carpal tunnel syndrome on both sides Lateral epicondylitis/tennis elbow Acquired cavovarus deformity of left foot Acquired cavovarus deformity of right foot Arthritis of knee, degenerative Pituitary abnormality Shortness of breath Change in vision Seasonal allergies Thyroid disease Headache, migraine Cardiac arrhythmia Asthma Arthritis Surgical History Surgical History History of repair of anterior cruciate ligament of right knee History of tonsillectomy Family History Family History Father Diabetes mellitus Hypertension Mother Family history of hypothyroidism Other Family history of arthritis Family history of thyroid disease Social History Social History Smoking status: Never smoker Second hand tobacco smoke exposure: Yes Alcohol intake: never Substance use: never Substance use type: does not use Lack of Transportation: No Lack of Food: Never True Current Housing: I Have Housing Concerned About Future Housing: No Difficulty Paying Gas/Electric Bills: No Difficulty Paying for Meds: No Currently Unemployed: No Education: Bachelor's Degree Difficulty w/ Childcare or Family Care: No Living arrangements: with family Spiritual care concerns: No Comments At the time of my signature, I reviewed and agree with the nursing past medical, surgical, social, and family history. There is no relevant family history pertinent to the patient complaint. Exam Narrative: GENERAL: This is a well-nourished, well-developed patient, in no apparent distress. HEAD: normocephalic, atraumatic. EYES: PERRL. Sclera clear/white. Vision is grossly intact. EARS: External ears normal, auditory canals clear and without drainage, TMs normal without perforation. Hearing grossly intact. NOSE: External nose normal with no obvious nasal discharge, nares without redness, no rhinorrhea. THROAT: Mucous membranes moist, posterior pharynx clear. NECK: Neck supple, non-tender without lymphadenopathy, masses or thyromegaly. CARDIOVASCULAR: Regular rate and rhythm without murmurs, gallops, or rubs. RESPIRATORY: Clear to auscultation. Breath sounds equal bilaterally. No wheezes, rales, or rhonchi. GASTROINTESTINAL: Abdomen soft, non-tender, nondistended. Bowel sounds are active. No hepato-splenomegaly, or palpable masses. No guarding. SKIN: warm, intact with no suspicious lesions or rash, good texture and turgor. NEURO: awake, alert, and oriented to person, place and time. There were no obvious focal neurologic abnormalities. EXTREMITIES: No clubbing, cyanosis, or edema. No joint tenderness, effusion, or edema noted. BACK: Tenderness in the paraspinous muscles in the lumbar area. No tenderness over the spinous processes of the lumbar vertebrae. LEGS: Normal strength including dorsi-flexion and plantar flexion of the feet. Negative bilateral straight leg raising, normal and symmetrical knee and ankle reflexes. Course Course Level of Care: Express Care Visit Vital Signs Vital signs: Vital Signs Temperature 97.5 F L 07/09/24 17:19 Pulse Rate 90 07/09/24 17:19 Respiratory Rate 16 07/09/24 17:19 Blood Pressure 82/68 L 07/09/24 17:19 Pulse Oximetry 98 07/09/24 17:19 Temperature 97.5 F L 07/09/24 17:19 Pulse Rate 90 07/09/24 17:19 Respiratory Rate 16 07/09/24 17:19 Blood Pressure 82/68 L 07/09/24 17:19 Pulse Oximetry 98 07/09/24 17:19 Reviewed MDM - Back Pain/Injury MDM Narrative Medical decision making narrative: Use the RICE method at home. May take ibuprofen and/or Tylenol if needed. If symptoms persist in 1 week after conservative treatment, follow-up with specialist. Differential Diagnosis Differential diagnosis: Likely lumbar radiculopathy, sciatica, strain of lumbar region and other ( degenerative disc disease of the lumbar spine) Imaging Data Attestation: I personally reviewed and interpreted this imaging study as follows: Radiologist's impression: Close Lumbar Spine X-Ray (Signed) Zheng Dugan - 07/09/24 Launch?[facility] [address] [place] [address] XRay Report Signed Patient: Ashley Becerril Jack : 1975 MR#: [id number] Age: 49 Acct:[id number] Loc: [facility] ADM Date: 07/09/24Attending Dr: Ordering Physician: Sandra Ascencio APRN Date of Service: 07/09/24 Procedure(s): XR lumbar spine 2-3V Accession Number(s): [id number] cc: Sandra Ascencio APRN; Jessica Wilson APRN~ 3 VIEWS LUMBAR SPINE Ordering provider: Sandra Ascencio APRN History: . low back pain . Comparison: None. FINDINGS: VERTEBRAL BODIES:Spondylolisthesis at the level of L5-S1 with spondylolysis. No visible fracture or subluxation. DISK SPACES: Narrowing of the disc L5-S1. Facet joint disease at the same level. SOFT TISSUES: Normal. IMPRESSION: No acute osseous abnormality lumbar spine. Spondylolisthesis at the level of L5-S1 with degenerative disc disease at the same level. Reviewed, dictated and finalized at location A. Please be advised this is a medical document. It is intended for [id number] communication. It is written in medical language and may contain unfamiliar abbreviations or verbiage. Medical documents are intended to carry relevant information, facts as evident, and the clinical opinion of the practitioner at the time of the encounter. This report may have been done utilizing a voice recognition system. Attempts have been made to correct errors. However, there may be uncorrected grammatical, spelling, and recognition errors present. The file time of this note does not necessarily represent the time of service. Dictated By: Zheng Dugan MD 07/09/24 1740 Signed By: <Electronically signed by Zheng Dugan MD in OV> 07/09/24 1741 Critical Care Time Critical Care Time Critical Care Time: No Discharge Plan Discharge Clinical Impression: Degenerative disc disease, lumbar Qualifiers: Disc-related pain type: discogenic back pain only Qualified Code(s): M51.360 - Other intervertebral disc degeneration, lumbar region with discogenic back pain only Patient Disposition: Home, Self-Care Condition: Stable Instructions: Acute Low Back Pain (ED), P.R.I.C.E. Treatment (ED) Additional Instructions: Use the RICE method at home. May take ibuprofen and/or Tylenol if needed. If symptoms persist in 1 week after conservative treatment, follow-up with specialist. Patient Language: Icelandic Prescriptions: New dexamethasone 4 mg tablet 4 mg PO DAILY 5 Days Qty: 5 0RF naproxen 500 mg tablet 500 mg PO BID PRN (Reason: pain) Qty: 20 0RF cyclobenzaprine 10 mg tablet 10 mg PO TID PRN (Reason: muscle spasm) Qty: 20 0RF No Action ciprofloxacin-dexamethasone [Ciprodex] 0.3-0.1 % drops,suspension 4 drp EACH EAR Q12H Qty: 7.5 0RF fluticasone propionate [Flonase Allergy Relief] 50 mcg/actuation spray,suspension 2 spray intranasal DAILY Qty: 16 0RF Rx Instructions: administer into each nostril acetaminophen [Tylenol] 325 mg tablet 325 mg PO Q6H PRN (Reason: Pain) multivitamin [Daily Multi-Vitamin] Tablet 1 tablet PO DAILY albuterol sulfate 90 mcg/actuation HFA aerosol inhaler 2 inh inhalation Q4H PRN (Reason: shortness of breath or wheezing) Qty: 18 0RF cetirizine [Zyrtec] 10 mg Tablet 10 mg PO DAILY adrenal cortex (porcine) 80 mg Tablet 80 mg PO DAILY rutin 500 mg Tablet 500 mg PO DAILY cholecalciferol (vitamin D3) 50 mcg (2,000 unit) tablet 50 mcg PO DAILY Qty: 90 1RF Follow-up/Referrals: Jessica Wilson APRN [Primary Care Provider] - Time of Disposition: 17:51
[2024-07-09 17:19] VITALS: BP 82/68; PULSE 90; RESP 16; TEMP 36.4; O2SAT 98
[2024-07-09 17:56] VITALS: BP 103/76
== END 2024-07-09 17:56 | disposition home or self-care (01) ==
PROVIDERS: Emergency Provider Nurse Practitioner; PCP Nurse Practitioner Family
DX: M51.360 Other intervertebral disc degeneration, lumbar region with discogenic back pain only (principal); M81.0 Age-related osteoporosis without current pathological fracture; L40.9 Psoriasis, unspecified; J45.909 Unspecified asthma, uncomplicated; M19.90 Unspecified osteoarthritis, unspecified site; Z86.16 Personal history of COVID-19
CPT/HCPCS: 72100; 99213; G0463

== ENCOUNTER 2024-08-06 08:37 | Outpatient (CLI) | payer BC, SELFPAY ==
--- NOTE | ~2024-08-06 | US_ITS ---
EXAMINATION: US thyroid DATE: 08/06/2024 09:20 INDICATION: Nontoxic single thyroid nodule TECHNIQUE: Multiple ultrasound images of the thyroid were obtained. COMPARISON: 10/03/2020 FINDINGS: The right thyroid lobe measures 4.3 x 1.3 x 1.7 cm. Within the mid pole of the right lobe of the thyroid gland is a 13 x 12 x 11 mm nodule (increased in size from 10 x 9 x 9 mm in 2020). Composition -solid or almost completely solid (2) Echogenicity - hypoechoic (1) Shape - wider than tall Margin - smooth Echogenic foci - none. = TR3 Mildly suspicious Greater than or equal to 1.5 cm: Follow-up Greater than or equal to 2.5 cm: FNA The left thyroid lobe measures 1.5 x 4.8 x 1.0 cm. The isthmus measures 0.3cm in anterior to posterior dimension. There is otherwise normal echotexture throughout the remainder of the thyroid gland. No additional di screte nodules identified. Normal vascular flow is present. IMPRESSION: TR3 nodule in the right lobe of the thyroid gland measuring 13 mm in greatest dimension. This nodule is mildly suspicious and based on size, no FNA is recommended. Follow-up may be performed, but is not recommended. Reviewed, dictated and finalized at location A. IMPRESSION: TR3 nodule in the right lobe of the thyroid gland measuring 13 mm in greatest d imension. This nodule is mildly suspicious and based on size, no FNA is recommended. Follow-up may be performed, but is not recommended.
--- OUTSIDE RECORDS SUMMARY | 2024-08-06 08:55 | XMS_ITS | Clinical Summary ---
Author Organization [facility] Address [address] [place] [address] Care Team Providers Care Hairspring Setter Name Role Phone Larry Hughes MD Unavailable [phone] Elliott Lopez NP Primary Care Provider [phone] Allergies No known active allergies Medications albuterol HFA (PROVENTIL HFA,VENTOLIN HFA,PROAIR HFA) 90 mcg/actuation inhaler 1 Active coenzyme Q10 10 mg capsule Take 1 capsule (10 mg total) by mouth daily Active omega-3 fatty acids-fish oil 300-1,000 mg capsule Take 2 capsules (2 g total) by mouth daily Active multivitamin tabletIndications:V itamin Deficiency Prevention Take 1 tablet by mouth Active estradioL (ESTRACE) 1 mg tablet Take 1 tablet (1 mg total) by mouth daily 4 Active meloxicam (MOBIC) 15 mg tabletIndications:P ost-traumatic osteoarthritis of right knee Take 1 tablet (15 mg total) by mouth as needed for pain 30 tablet 4 Active Active Problems Problem Noted Date Diagnosed Date Post-traumatic osteoarthritis of right knee 03/24 Complex tear of medial menis cus of right knee as current injury 04/03/2024 Pes anserine bursitis 04/03/2024 Elevated rheumatoid factor 01/08/2024 Overview (02/05/2024): Labs 01/08/24: CBC nl, CMP nl, ESR 11, CRP <0.3mg/dL AVISE 01/08/24: RF IgM 46 US right hand/wrist (02/05/24): 1) 2nd PIP joint: Grade 2 power doppler with marked synovial thickening. 2) Dorsal wrist: Grade 1 power doppler. 3) Radial scaphoid joint: Grade 1 power doppler. 4) 3rd PIP joint: Moderate synovial thickening. 5) 1st CMC joint: Marked spurring. Assessment & Plan (01/22/2024 12:06 PM CDT): 48-year-old female with PMHx of osteopenia, miscarriage, migraines, and OA c/o elevated KEYUR 1:40 mitotic intercellular bridge pattern and ESR 16 (nl <15) along with pain in the left glute/hamstring insertions, generalized AM stiffness, knots in her calves, and bilateral tennis elbow. She denies rashes, photosensitivity, raynaud's, or cardiopulmonary complaints. Rheumatologic evaluation revealed elevated RF IgM (46). AVISE was unremarkable for any other autoantibodies, including KEYUR this time. Discussed +RF and monitoring for active RA. She agrees to a baseline hand US. Will schedule R hand/wrist US to evaluate for any underlying inflammation to suggest active RA. Will call with results. Should US suggest active RA, then can consider treatment for RA to prevent future damage. Should US show no signs of active RA, then can monitor off medication and focus on lifestyle modifications. Would follow up in 6 months to monitor symptoms. Sooner if needed. Discussed with Dr. Hughes. Assessment & Plan (01/08/2024 12:58 PM CDT): 48-year-old female with PMHx of osteopenia, miscarriage, migraines, and OA c/o elevated KEYUR 1:40 mitotic intercellular bridge pattern and ESR 16 (nl <15) along with pain in the left glute/hamstring insertions, generalized AM stiffness, knots in her calves, and bilateral tennis elbow. No obvious synovitis or tenderness noted on peripheral exam today. She denies rashes, photosensitivity, raynaud's, or cardiopulmonary complaints. Symptoms and exam are not suspicious for a rheumatologic disease. Will order appropriate serologies to further evaluate. Follow up in 2 weeks. Sooner if needed. Seen with Dr. Hughes. Encounters Date Type Department Care Team Description 07/29/2024 Telephone [facility] Medical Group Sports Medicine and Primary Care at [address] [place] [address] Jaimie Rooney MA from Last 3 Months Surgical History Surgery Date Site/Laterality Comments SECTION 04/24/2010 - 04/23/2011 KNEE ARTHROSCOPY 04/24/1995 - 04/23/1996 Right ACL reconstruction Medical History Medical History Date Comments Migraine Concussion 2010 Abnormal Pap smear of cervix Aborter, habitual, not ADHD (attention deficit hyperactivity disorder) Asthma Spondylolisthesis of lumbar region-mild 1 mm anterolisthesis L4 on L5 on flexion.1 mm retrolisthesis L4 on L5 on extension; mild retrolisthesis of L5 on L6 stable on flexion; grade 1 anterolisthesis L6 on S1 05/04/2022 Lumbar facet arthropathy DDD (degenerative disc disease), lumbar Degeneration of intervertebr al disc of lumbar region with osteophyte of lumbar vertebra 06/18/2022 Family History Medical History Relation Name Comments Diabetes Father Lung cancer Maternal Grandfather Diabetes Maternal Grandmother Thyroid cancer Mother Diabetes Paternal Grandmother Relation Name Status Comments Father Maternal Grandfather Maternal Grandmother Mother Paternal Grandmother Social History Tobacco Use Types Packs/Day Years Used Date Smoking Tobacco: Never Smokeless Tobacco: Current Tobacco Cessation:Ready to Q uit: Not Asked; Counseling Given: Not Answered AUDIT-C Answer Date Recorded Q1: How often do you have a drink containing alcohol? Never 01/16/2024 Q2: How many drinks containi ng alcohol do you have on a typical day when you are drinking? Patient does not drink Q3: How often do you have si x or more drinks on one occasion? Never 01/16/2024 PHQ-2 Answer Date Recorded PHQ-2 Total Score (If total score is 3 or more points, staff should administer the PHQ-9) 0 08/04/2020 Comments Unknown Sex and Gender Information Value Date Recorded Sex Assigned at Not on file Legal Sex Female 11:19 AM SUPERVISOR PIPE MANUFACTURE Gender Identity Not on file Sexual Orientation Not on file Occupation Industry Job Start Date Job End Date homemaker Not on file Not on file Not on file Obstetrics History Para Term AB IAB SAB Ectopic Multiple Livin g Live Births 6 1 1 5 5 Date Outcome GA Total Labor Labor/2nd/3rd Weight Sex Type Anes PTL Nichol A1 A5 Name Clin Term 40w 0d 3.629 kg (8 lb) M CS-Un spec Complications:Colic in infan 2015 Last Filed Vital Signs Vital Sign Reading Time Taken Comments Blood Pressure 108/75 04/03/2024 1:12 PM SUPERVISOR PIPE MANUFACTURE Pulse 71 04/03/2024 1:12 PM SUPERVISOR PIPE MANUFACTURE Temperature - - Respiratory Rate 18 01/16/2024 4:04 PM CDT Oxygen Saturation 97% 01/08/2024 11: 06 AM CDT Inhaled Oxygen Concentration - - Weight 72.5 kg (159 lb 12.8 oz) 04/03/2024 1:12 PM SUPERVISOR PIPE MANUFACTURE Height 160 cm (5' 3 ) 04/03/2024 1:12 PM SUPERVISOR PIPE MANUFACTURE Body Mass Index 28.31 04/03/2024 1:12 PM SUPERVISOR PIPE MANUFACTURE Plan of Treatment Health Maintenance Due Date Last Done Comments Breast Cancer Screening-Mammogram 1973 Cervical Cancer Screening 1973 Colon Cancer Screening-Colonoscopy 1973 Hepatitis C Screening 1973 Regular Well Visit/Exam 18-64 07/09/1991 Depression Screening 08/04/2021 08/04/2020 DTaP/Tdap/Td Vaccine (2 - Td or Tdap) 08/21/2021 08/22/2011 Zoster Vaccine (1 of 2) 07/09/2023 Influenza Vaccine (Season Ended) 2024 Hepatitis B Screening Completed 09/01/2008 , 03/03/2008, 01/29/2008, Additional history exists Pneumococcal vaccine <65 Aged Out No longer eligible based on patient's age to complete this topic Insurance [employer] [facility] BLUE [place]ESS CHOICE [place] Subscriber Plan / Payer (Ef fective 2017-Present) Name:Ashley Crain Relation to Subscriber:Spouse Name:SORAIDABENOITELI Pillo Date of :1963 (Home) Address: [address] [place] [address] Payer ID:[id number] (NAIC) Group ID:[id number] Type:BC OTHER Address: [id number] [place] [address] [employer] [place] [employer] [facility] Care Teams Hairspring Setter Relationship Specialty Start Date End Date Elliott Lopez NP [address] [place] [address] PCP - General Nurse Practitioner 01/08/24 Larry Hughes MD [address] [place] [address] Consulting Physician Rheumatology 12/05/23
--- OUTSIDE RECORDS SUMMARY | 2024-08-06 08:55 | XMS_ITS | Encounter Summary ---
Author Organization [facility] Address [facility] [place] [address] Care Team Providers Care House Player Name Role Phone Angel Quigley DO Primary Care Provider [phone] Encounter Details Date Type Department Care Team (Late st Contact Info) Description 12/09/2019 Prep for Procedure [address] [address] Gera Paris MD Social History Tobacco Use Types Packs/Day Years Used Date Smoking Tobacco: Never Smokeless Tobacco: Never Alcohol Use Standard Drinks/Week Comments No 0 (1 standard drink = 0.6 oz pur e alcohol) AUDIT-C Answer Date Recorded Frequency of Alcohol Consumption Never 02/20/2019 Average Number of Drinks Not on file 019 Frequency of Binge Drinking Not on file 01/24 Comments No Sex and Gender Information Value Date Recorded Sex Assigned at Not on file Legal Sex Female 6:18 PM CDT Gender Identity Not on file Sexual Orientation Not on file COVID-19 Exposure Response Date Recorded In the last month, have you been in contact with someone who was confirmed or suspected to have Coronavirus / COVID-19? No / Unsure 12/09/2019 11:42 AM CDT documented as of this encounter Plan of Treatment Not on file documented as of this encounter Visit Diagnoses Diagnosis Pre-op testing- Primary Preoperative examination, unspecified documented in this encounter Care Teams House Player Relationship Specialty Start Date End Date Angel Quigley DO [address] [place] [address] PCP - General FAMILY PRACTICE 11/12/19 documented as of this encounter
--- OUTSIDE RECORDS SUMMARY | 2024-08-06 08:55 | XMS_ITS | Clinical Summary ---
Author Organization [facility] Address [address] [place] [address] Care Team Providers Care Disability Examiner Name Role Phone DonaldAngel dodge Primary Care Provider [phone] Allergies No known active allergies Medications Probiotic Product (ACIDOPHILUS/GO AT MILK) Cap Take 1 capsule by mouth daily. 11/14/2016 Active Cyanocobalamin (VITAMIN B-12) 50 MCG Tab Take 1 tablet by mouth daily. 11/14/2016 Active Potassium 75 MG Tab Take 1 tablet by mouth daily. 11/14/2016 Active Cholecalciferol (VITAMIN D) 50 MCG (2000 UT) Tab Take 1 tablet by mouth daily. Active multi vitamin/mineral s tablet Take 1 tablet by mouth daily. Active magnesium oxide 250 MG tablet Take 250 mg by mouth daily. Active progesterone 200 MG capsule Take 1 capsule by mouth. Take day 14 to 28. 07/28/2020 Active Active Problems Problem Noted Date Diagnosed Date History of colon polyps 01/08/2020 Overview (01/08/2020): Added automatically from request for surgery [id number] Resolved Problems Problem Noted Date Diagnosed Date Resolved Date Encounter for screening for malignant neoplasm of colon 02/20/2019 01/03/2020 Immunizations Immunization Administration Dates Next Due PFIZER COVID-19 (ORIGINAL FO RMULATION, PURPLE CAP) mRNA, LNP-S, PF, 30 MCG/0.3 ML DOSE 09/17/2020,08/27/2020 Family History Medical History Relation Comments Diabetes Father Thyroid Mother Relation Status Comments Father Alive Mother Alive Social History Tobacco Use Types Packs/Day Years Used Date Smoking Tobacco: Never Smokeless Tobacco: Never Alcohol Use Standard Drinks/Week Comments Never 0 (1 standard drink = 0.6 oz [...] on file Sexual Orientation Not on file Last Filed Vital Signs Vital Sign Reading Time Taken Comments Blood Pressure 93/63 02/16/2021 3:07 PM CDT Pulse 72 02/16/2021 3:07 PM CDT Temperature 36.7 C (98 F) 02/16/2021 3:07 PM CDT Respiratory Rate 16 02/16/2021 3:07 PM CDT Oxygen Saturation 99% 02/16/2021 3:07 PM CDT Inhaled Oxygen Concentration - - Weight 68 kg (150 lb) 03/19/2021 1:35 PM FINISHING INSPECTOR Height 160 cm (5' 3 ) 03/19/2021 1:35 PM FINISHING INSPECTOR Body Mass Index 26.57 03/19/2021 1:35 PM FINISHING INSPECTOR Plan of Treatment Health Maintenance Due Date Last Done Comments Cervical Cancer Screening Pa p Smear (Age 30 to 64) Every 3 Years 1973 Colorectal Cancer Screening Colonoscopy (10 Years) 1973 Annual Physical 1976 Hepatitis C 07/09/1991 DTaP, Tdap and Td Vaccines ( 1 - Tdap) 1992 Hepatitis B Vaccines (1 of 3 - 19+ 3-dose series) 1992 Cervical Cancer Screening Pa p with HPV Testing (Age 30 to 64) Every 5 Years 07/09/2003 Cervical Cancer Screening wi th HPV 07/09/2003 Mammogram Screening 2013 Zoster Vaccines (1 of 2) 07/09/2023 COVID-19 Vaccine (2023-2 5 season) 2023 09/17/2020, 08/27/2020 Meningococcal B Vaccine Aged Out No l onger eligible based on patient's age to complete this topic Meningococcal Vaccine Aged Out No gypsy jory eligible based on patient's age to complete this topic Pneumococcal Vaccine: Pediatrics (0 to 5 Years) and At-Risk Patients (6 to 49 Years) Aged Out No longer eligible b ased on patient's age to complete this topic RSV Immunizations Under 20 Months Aged Out No longer eligible b ased on patient's age to complete this topic Medical Devices Implanted Type Area Area Sales Manager Device Identifier Shelf Expiration Date Model / Serial / Lot Screw Screw Right: Knee Insurance [facility] Care Teams Disability Examiner Relationship Specialty Start Date End Date Angel Quigley DO [address] [place] [address] PCP - General FAMILY PRACTICE 11/12/19
--- OUTSIDE RECORDS SUMMARY | 2024-08-06 08:55 | XMS_ITS | Clinical Summary ---
Author Organization [facility] Address [address] [place] [address] Care Team Providers Care Panel Sewer Name Role Phone Pete Beavers Primary Care Provider [phone] Source Comments [facility],non-owned Affiliates and Associated Physician Practices is amultiple site organization consisting of ambulatory clinics and hospital sitesin [place], [place], [place] and [place]. This disclosure is being madepursuant to the Care Everywhere program and may not contain all information available regarding this patient. Last updated 18.[facility] Allergies No known active allergies Medications * Be aware that medications may not be up to date on this document. Alwaysverify current medications with the patient. Potassium 75 MG Take by mouth. 11/14/2016 Active EYEBRIGHT PO Take 5 mL by mouth once daily Active WAN SEAL PO Take 5 mL by mouth once daily Active Progesterone 200 MG capsule 07/28/2020 Active Cholecalciferol 50 MCG (1999 UT) Take 1 tablet by mouth once daily Active albuterol HFA (PROVENTIL;BREANNE JOHNNY;PROAIR) 108 (90 Base) MCG/ACT inhaler 05/20/2020 Act earl MAGNESIUM CHLORIDE-CALCIUM PO Take by mouth once daily Active Active Problems Problem Noted Date Diagnosed Date Otalgia of both ears 06/22/2020 Melanocytic nevi of lower extremity or hip 12/14 Melanocytic nevi of trunk 12/14/2016 Melanocytic nevi of unspecif ied upper limb, including shoulder 12/14/2016 Other melanin hyperpigmentation 12/14/2016 Lipoma of left lower extremity 12/14/2016 Allergic contact dermatitis due to plants, excep t food 12/14/2016 Other benign neoplasm of ski n of left lower limb, including hip 12/14/2016 Family History Medical History Relation Name Comments Cancer - Skin, Non Melanoma Mother Cancer - Skin, Melanoma Neg Hx Relation Name Status Comments Mother Social History Tobacco Use Types Packs/Day Years Used Date Smoking Tobacco: Never Smokeless Tobacco: Never Alcohol Use Standard Drinks/Week Comments No 0 (1 standard drink = 0.6 oz pur e alcohol) Comments No Sex and Gender Information Value Date Recorded Sex Assigned at Not on file Legal Sex Female 5:33 PM PLANT SECURITY GUARD Gender Identity Not on file Sexual Orientation Not on file Last Filed Vital Signs Vital Sign Reading Time Taken Comments Blood Pressure 92/70 12/07/2020 1:57 PM CDT Pulse 85 12/07/2020 1:57 PM CDT Temperature - - Respiratory Rate - - Oxygen Saturation - - Inhaled Oxygen Concentration - - Weight 71.2 kg (157 lb) 12/07/2020 1:57 PM CDT Height 160 cm (5' 3 ) 12/07/2020 1:57 PM CDT Body Mass Index 27.81 12/07/2020 1:57 PM CDT Plan of Treatment Health Maintenance Due Date Last Done Comments COLOGUARD (AGES 45-75) - COL ON CA SCREENING 1973 COLON MONITORING 1973 COLONOSCOPY - COLON CA SCREENING 1973 CT COLONOGRAPHY - COLON CA SCREENING 1973 Colorectal Cancer Screening 1973 FIT - COLON CA SCREENING 1973 FLEX SIG - COLON CA SCREENING 1973 LIPID TESTING 1973 MAMMOGRAM 1973 PAP SMEAR 1973 HIV SCREENING 1988 DTAP/TDAP/TD VACCINES (1 - Tdap) 1992 HEPATITIS B VACCINE (1 of 3 - 19+ 3-dose series) 1992 SCREENING FOR DIABETES 09/09/2019 PNEUMOCOCCAL VACCINE 50+ (1 of 1 - PCV) 07/09/2023 ZOSTER VACCINE (1 of 2) 07/09/2023 COVID-19 VACCINE ( - 2023-2 5 season) 2023 DEPRESSION SCREENING 04/24/2024 INFLUENZA VACCINE (Season Ended) 2024 03/08/20 11 HEPATITIS C SCREENING Completed 08/11/2010 HIB VACCINE Aged Out No longer eligi ble based on patient's age to complete this topic HPV VACCINE Aged Out No longer eligi ble based on patient's age to complete this topic MENINGOCOCCAL (Group B) VACC INE SHARED DECISION-MAKING Aged Out No longer eligibl e based on patient's age to complete this topic MENINGOCOCCAL GROUPS A/C/Y/W VACCINE Aged Out No longer eligible b ased on patient's age to complete this topic Insurance [facility] Care Teams Panel Sewer Relationship Specialty Start Date End Date Pete Beavers DO [address] [place] [address] PCP - General Internal Medicine 06/22/20
--- OUTSIDE RECORDS SUMMARY | 2024-08-06 08:55 | XMS_ITS | Referral Summary ---
Author Organization [facility] Address [address] [place] [address] Care Team Providers Care Supervisor Fabrication And Assembly Name Role Phone Larry Hughes MD Unavailable [phone] Elliott Lopez NP Primary Care Provider Encounters Date Type Department Care Team Description 07/29/2024 Telephone [facility] Medical Group Sports Medicine and Primary Care at [address] [place] [address] Jaimie Rooney MA from Last 3 Months Allergies No known active allergies Medications albuterol [...] Sooner if needed. Seen with Dr. Hughes. Social History Tobacco Use Types Packs/Day Years [...] on file Legal Sex Female 11:19 AM ASSISTANT DIRECTOR OF NURSING Gender Identity Not on file Sexual Orientation Not on file Occupation Industry Job Start Date Job End Date homemaker Not on file Not on file Not on file Last Filed Vital Signs Vital Sign Reading Time Taken Comments Blood Pressure 108/75 04/03/2024 1:12 PM ASSISTANT DIRECTOR OF NURSING Pulse 71 04/03/2024 1:12 PM ASSISTANT DIRECTOR OF NURSING Temperature - - Respiratory Rate 18 01/16/2024 4:04 PM CDT Oxygen Saturation 97% 01/08/2024 11: 06 AM CDT Inhaled Oxygen Concentration - - Weight 72.5 kg (159 lb 12.8 oz) 04/03/2024 1:12 PM ASSISTANT DIRECTOR OF NURSING Height 160 cm (5' 3 ) 04/03/2024 1:12 PM ASSISTANT DIRECTOR OF NURSING Body Mass Index 28.31 04/03/2024 1:12 PM ASSISTANT DIRECTOR OF NURSING Plan of Treatment Not on file Insurance [place] [employer] [facility] [employer] [place] [facility] Care Teams Supervisor Fabrication And Assembly Relationship Specialty Start Date End Date Elliott Lopez NP [address] [place] [address] PCP - General Nurse Practitioner 01/08/24 Larry Hughes MD [address] [place] [address] Consulting Physician Rheumatology 12/05/23
== END 2024-08-06 08:38 | disposition home or self-care (01) ==
LOC: ANHIMG 08:40
PROVIDERS: PCP Nurse Practitioner Family; Visit Provider Nurse Practitioner Family
DX: Z00.00 Encounter for general adult medical examination without abnormal findings (principal); E04.1 Nontoxic single thyroid nodule; R76.8 Other specified abnormal immunological findings in serum; Z87.898 Personal history of other specified conditions
CPT/HCPCS: 76536